=== PATIENT | male | born 1970 | race Caucasian/White ===

== ENCOUNTER 2019-03-18 14:16 | Emergency (ER) | payer MEDICARE, MEDICAID ==
[~2019-03-18] VITALS: Ht 175.3 cm; Wt 97.0 kg
[~2019-03-18 14:16] MED LIST: ONDA4TAB6 PO; PANT-47 PO; TRAM50TA2 PO
[2019-03-18] MEDS ORDERED: SULF1TAB49 PO (15:27)
[2019-03-18] MEDS ORDERED: CEPH-572 PO (15:27)
[2019-03-18] MEDS ORDERED: sulfamethoxazole/trimethoprim DS (800/160mg) tablet PO ONE (15:30)
[2019-03-18] MEDS ORDERED: cephalexin 250mg capsule PO ONE (15:30)
[2019-03-18 16:34] VITALS: BP 141/72
== END 2019-03-18 16:13 | disposition home or self-care (01) ==
LOC: ER 14:16
DX: L02.11 Cutaneous abscess of neck (principal); F15.90 Other stimulant use, unspecified, uncomplicated; G89.29 Other chronic pain; Z79.899 Other long term (current) drug therapy; Z86.14 Personal history of Methicillin resistant Staphylococcus aureus infection; Z56.0 Unemployment, unspecified
CPT/HCPCS: 10060; 99284

== ENCOUNTER 2019-04-16 18:27 | Emergency (ER) | payer MEDICARE, MEDICAID ==
[~2019-04-16] VITALS: Ht 175.3 cm; Wt 99.8 kg
[2019-04-16 19:05] VITALS: BP 100/80
[2019-04-16] MEDS ORDERED: CefTRIAXone 1000mg IM Kit (w/lidocaine diluent) IM ONE (19:30)
[2019-04-16] MEDS ORDERED: azithromycin 250mg tablet PO ONE (19:30)
[2019-04-16 19:43] LABS: CLARITY,URINE CLOUDY (Clear); COLOR,URINE YELLOW (Yellow); GLUCOSE, URINE NEGATIVE (Neg); KETONES,URINE NEGATIVE (Neg); LEUKOCYTE ESTERASE ,URINE MODERATE (Neg); NITRITES, URINE NEGATIVE (Neg); OCCULT BLOOD,URINE SMALL (Neg); PH,URINE 5.5 (4.8-8.0); PROTEIN,URINE NEGATIVE (Neg); UROBILINOGEN,URINE 0.2 E.U/dL (0.2-1.0)
[2019-04-16 19:50] LABS: BACTERIA,URINE FEW /HPF (Neg); RBC,URINE 0-2 /HPF (0-2); SQUAMOUS EPITHELIAL CELL,UR FEW /LPF (FEW); UA COLLECTION TYPE VOIDED; WBC CLUMPS,URINE FEW /HPF (NEGATIVE); WBC,URINE 30-50 /HPF (0-4)
== END 2019-04-16 20:16 | disposition home or self-care (01) ==
LOC: ER 18:27
DX: A64 Unspecified sexually transmitted disease (principal); A54.9 Gonococcal infection, unspecified; A74.9 Chlamydial infection, unspecified; G89.29 Other chronic pain; F15.90 Other stimulant use, unspecified, uncomplicated; Z79.899 Other long term (current) drug therapy; Z86.14 Personal history of Methicillin resistant Staphylococcus aureus infection; Z56.0 Unemployment, unspecified
CPT/HCPCS: 36415; 81001; 87088; 87491; 87591; 96372; 99283; J0696

== ENCOUNTER 2021-09-12 00:16 | Emergency (ER) | payer MEDICARE, MEDICAID ==
[~2021-09-12] VITALS: Ht 175.3 cm; Wt 100.0 kg
[2021-09-12] MEDS ORDERED: methylPREDNISolone sod succ 125mg/2ml vial IV ONE (00:25)
[2021-09-12] MEDS ORDERED: famotidine/PF 10 mg/ml inj IV ONE (00:25)
[2021-09-12] MEDS ORDERED: epiNEPHrine 1 mg/ml inj SQ ONE (00:25)
[2021-09-12] MEDS ORDERED: diphenhydrAMINE 50 mg/ml inj IV ONE (00:25)
--- NOTE | 2021-09-12 00:30 | NUR ---
EKG CANCELLED BY
[2021-09-12] MEDS ORDERED: famotidine 20mg tablet PO ONE (01:30)
[2021-09-12] MEDS ORDERED: methylPREDNISolone sod succ 125mg/2ml vial IM ONE (01:30)
[2021-09-12] MEDS ORDERED: diphenhydrAMINE 50 mg/ml inj IM ONE (01:30)
[2021-09-12 03:19] VITALS: BP 129/72
== END 2021-09-12 03:40 | disposition home or self-care (01) ==
LOC: ER 00:16
DX: T78.1XXA Other adverse food reactions, not elsewhere classified, initial encounter (principal); G89.29 Other chronic pain; Z86.14 Personal history of Methicillin resistant Staphylococcus aureus infection; Z56.0 Unemployment, unspecified; Z79.899 Other long term (current) drug therapy; Y92.89 Other specified places as the place of occurrence of the external cause
CPT/HCPCS: 93005; 96372; 99291; J0171; J1200; J2930